=== PATIENT | female | born 1995 | race Caucasian/White ===

== ENCOUNTER → 2016-08-07 | Outpatient (CLI) | payer OTHER ==
[2016-08-07 17:48] LABS: HEMOGLOBIN 12.9 gm/dl (12.3-15.3); RED BLOOD COUNT 4.4 M/UL (4.00-5.10); WHITE BLOOD COUNT 6.8 K/UL (4.5-11.0)
[2016-08-07 19:01] LABS: BUN/CREATININE RATIO 16 (0-10)
== END ==
LOC: KOH-I 16:00 → LAB 17:26
PROVIDERS: Family Medicine
DX: R10.9 Unspecified abdominal pain (principal)
CPT/HCPCS: 36415; 74176; 80053; 85027